=== PATIENT | male | born 1940 | race Caucasian/White ===

== ENCOUNTER 2018-03-26 16:46 | Emergency (ER) | payer MEDICARE ==
[2018-03-26] MEDS ORDERED: Lidocaine 1% 20 ML MDV ONE (17:16)
[2018-03-26] MEDS ORDERED: Adacel (T-DAP) 0.5 ML VIAL ONE (17:34)
== END 2018-03-26 17:53 | disposition home or self-care (01) ==
LOC: BURERS 16:46
DX: S60.452A Superficial foreign body of right middle finger, initial encounter (principal); Z79.899 Other long term (current) drug therapy; Z79.82 Long term (current) use of aspirin; W45.8XXA Other foreign body or object entering through skin, initial encounter
CPT/HCPCS: 90471; 90715; J2001